=== PATIENT | male | born 1965 | race Caucasian/White ===

== ENCOUNTER → 2017-06-21 | Outpatient (CLI) | payer OTHER ==
[~2017-06-21] MED LIST: ALPR0.25 PO; CLIN300C11 PO; FLUO20CA25 PO; IOHEXOL 350 MG/ML 100 ML (OMNIPAQUE 350) VIAL IV ONE; LACT1CAP64 PO; LISI10TA2 PO; METF500T8 PO; MTF500T PO; MUPI15CR11 TOP; NS 250 ML (IVPB) BAG IV ONE; OMEP40CA36 PO; PRD20T PO; RANI75TA30 PO; SULF-222 PO
[2017-06-21 12:45] LABS: BUN/CREATININE RATIO 13; GFR ESTIMATED > 60
--- NOTE | 2017-06-21 14:14 | Diagnostic Imaging Report ---
PROCEDURE: CT abdomen and pelvis with contrast. TECHNIQUE: Multiple contiguous axial images were obtained through the abdomen and pelvis after administration of intravenous contrast. INDICATION: Pelvic pain and pressure. COMPARISON: No prior studies are available for comparison. FINDINGS: The lung bases are clear. There is generalized low density throughout the liver consistent with hepatic steatosis. There is a hyperdense lesion within the right lobe of the liver measuring 10 mm. There are two hyperdense lesions within the spleen as well, largest 14 mm in size. These may represent focal areas of hyperenhancement from cavernous hemangiomas. The gallbladder is unremarkable. The pancreas is unremarkable. No adrenal mass is detected. The kidneys are unremarkable. Aorta is non-aneurysmal. There is a segment of significant circumferential wall thickening involving the sigmoid colon. Pericolonic inflammatory stranding is present. Multiple diverticuli are present. Findings are consistent with acute diverticulitis. No abscess formation or bowel obstruction is identified. There is no ascites. The bladder and prostate are unremarkable. No lymphadenopathy is seen. IMPRESSION: 1. Hepatic steatosis. 2. Hyperdense liver and splenic lesions, suggestive of hemangiomas. Followup to confirm stability is recommended. 3. Findings consistent with acute sigmoid diverticulitis. There is no evidence of abscess formation or bowel obstruction. Dictated by: Dictated on workstation # [id number]
== END ==
LOC: RAD 12:07
PROVIDERS: ATTEND Nurse Practitioner Family
DX: K76.0 Fatty (change of) liver, not elsewhere classified (principal); D73.89 Other diseases of spleen; R19.4 Change in bowel habit
CPT/HCPCS: 36415; 74177; 82565; 84520